=== PATIENT | male | born 1970 | race Caucasian/White ===

== ENCOUNTER 2018-02-04 09:33 | Emergency (ER) | payer OTHER ==
--- NOTE | 2018-02-04 09:59 | EDM.PDOC ---
ED HPI GENERAL MEDICAL PROBLEM - General Chief Complaint: Upper Extremity Injury/Pain Stated Complaint: PT'S TUMB ON RT HAND IS SWOLLEN Time Seen by Provider: 02/04/18 09:49 Source of Information: Reports: Patient History Limitations: Reports: No Limitations - History of Present Illness INITIAL COMMENTS - FREE TEXT/NARRATIVE: History of present illness: []Patient's had right thumb swelling for over a month. 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 He states he can roll thousand 5 times a day. He does not recall ever breaking or having increased swelling. Review of systems: As per history of present illness and below otherwise all systems reviewed and negative. Past medical history: As per history of present illness and as reviewed below otherwise noncontributory. Surgical history: As per history of present illness and as reviewed below otherwise noncontributory. Social history: No reported history of drug or alcohol abuse. Family history: As per history of present illness and as reviewed below otherwise noncontributory. Physical exam: General: Well developed, well nourished in NAD HEENT: Atraumatic, normocephalic, pupils reactive, negative for conjunctival pallor or scleral icterus, mucous membranes moist, throat clear, neck supple, nontender, trachea midline. Lungs: Clear to auscultation, breath sounds equal bilaterally, chest nontender. Heart: S1S2, regular, negative for clicks, rubs, or JVD. Abdomen: Soft, nondistended, nontender. Negative for masses or hepatosplenomegaly. Negative for costovertebral tenderness. Pelvis: Stable nontender. Genitourinary: Deferred. Rectal: Deferred. Extremities: Atraumatic, there is swelling of the right thumb compared to the left and mild tenderness over the proximal phalanx with no gross deformity , Refill is brisk sensation is intact negative for cords or calf pain. Neurovascular unremarkable. Neuro: Awake, alert, oriented. Cranial nerves II through XII unremarkable. Cerebellum unremarkable. Motor and sensory unremarkable throughout. Exam nonfocal. Diagnostics: []X-ray right thumb shows no fracture Therapeutics: []Aluminum foam U-splint Impression: []Soft tissue thumb pain secondary to repetitive heavy pipe lifting Plan: []Motrin, ice, splint for comfort follow-up with primary care as needed. Definitive disposition and diagnosis as appropriate pending reevaluation and review of above. Right 1-Thumb Pain Score (Numeric/FACES): 5 - Related Data Allergies Allergy/AdvReac Type Severity Reaction Status Date / Time No Known Allergies Allergy Verified 02/04/18 09:47 Home Meds: Home Meds Phenytoin Sodium Extended [Dilantin] 600 mg PO DAILY 02/04/18 [History] levETIRAcetam [Keppra] 750 mg PO DAILY 02/04/18 [History] Past Medical History Neurological History: Reports: Seizure Other Neuro History: dx epilepsy - Past Surgical History GI Surgical History: Reports: Hernia Repair/Other Social & Family History - Family History Family Medical History: Noncontributory - Tobacco Use Smoking Status *Q: Former Smoker Used Tobacco, but Quit: Yes Month/Year Tobacco Last Used: 2016 - Caffeine Use Caffeine Use: Reports: Coffee - Recreational Drug Use Recreational Drug Use: No Review of Systems - Review of Systems Review Of Systems: See Below (See history of present illness) ED EXAM, GENERAL - Physical Exam Exam: See Below (See history of present illness) Course - Vital Signs Last Recorded V/S: Last Vital Signs Temp 97.8 F 02/04/18 11:48 Pulse 124 H 02/04/18 11:48 Resp 18 02/04/18 11:48 BP 162/98 H 02/04/18 11:48 Pulse Ox 98 02/04/18 11:48 - Orders/Labs/Meds Orders: Active Orders 24 hr Category Date Time Status Splinting [RC] ASDIRECTED Care 02/04/18 11:27 Active Departure - Departure Time of Disposition: 11:25 Disposition: Home, Self-Care 01 Condition: Good Clinical Impression: Swelling of thumb, right - Discharge Information Instructions: Contusion, [id number] Referrals: PCP,None [Primary Care Provider] - Forms: ED Department Discharge Additional Instructions: The following information is given to patients seen in the emergency department who are being discharged to home. This information is to outline your options for follow-up care. We provide all patients seen in our emergency department with a follow-up referral. The need for follow-up, as well as the timing and circumstances, are variable depending upon the specifics of your emergency department visit. If you don't have a primary care physician on staff, we will provide you with a referral. We always advise you to contact your personal physician following an emergency department visit to inform them of the circumstance of the visit and for follow-up with them and/or the need for any referrals to a consulting specialist. The emergency department will also refer you to a specialist when appropriate. This referral assures that you have the opportunity for follow-up care with a specialist. All of these measure are taken in an effort to provide you with optimal care, which includes your follow-up. Under all circumstances we always encourage you to contact your private physician who remains a resource for coordinating your care. When calling for follow-up care, please make the office aware that this follow-up is from your recent emergency room visit. If for any reason you are refused follow-up, please contact the [facility] Emergency Department at and asked to speak to the emergency department charge nurse. Scott Braun splint for protection follow-up with primary care [facility] [address] [place] [id number] - My Orders Last 24 Hours: My Active Orders 02/04/18 11:27 Splinting [RC] ASDIRECTED - Assessment/Plan Last 24 Hours: My Active Orders 02/04/18 11:27 Splinting [RC] ASDIRECTED
--- NOTE | 2018-02-04 11:12 | CR ---
EXAMINATION: Right thumb HISTORY: Pain COMPARISON: None TECHNIQUE: 3 views FINDINGS/IMPRESSION: There is no acute osseous abnormality, dislocation, or fracture. Bone mineraliza tion and joint spaces appear normal. Mild soft tissue swelling. Mild osteophyte formation noted at th e interphalangeal joint.
== END 2018-02-04 11:40 | disposition home or self-care (01) ==
LOC: MW.ED 09:33
DX: R22.31 Localized swelling, mass and lump, right upper limb (principal); M79.644 Pain in right finger(s); Z79.899 Other long term (current) drug therapy; Z87.891 Personal history of nicotine dependence; X50.3XXA Overexertion from repetitive movements, initial encounter
CPT/HCPCS: 73140-26-F5; 73140-F5; 99283

== ENCOUNTER 2018-02-09 18:00 | Emergency (ER) | payer BC, OTHER ==
[2018-02-09] MEDS ORDERED: Ondansetron 4 MG/2 ML SDV IVPUSH ONE (18:28)
[2018-02-09] MEDS ORDERED: Sodium Chloride 0.9% 1,000 ML IV ONE ×2 (18:28→19:56)
--- NOTE | 2018-02-09 18:28 | EDM.PDOC ---
ED HPI GENERAL MEDICAL PROBLEM - General Chief Complaint: Gastrointestinal Problem Stated Complaint: THROWING UP Time Seen by Provider: 02/09/18 18:22 - History of Present Illness INITIAL COMMENTS - FREE TEXT/NARRATIVE: HISTORY AND PHYSICAL: History of present illness: Patient's 47-year-old white male history of epilepsy who presents with concern of nausea vomiting diarrhea since this a.m. he denies fever chills he did not receive influenza immunization this year he denies chest pain shortness of breath or other concern. He equivocates regarding some mild epigastric discomfort. Review of systems: As per history of present illness and below otherwise all systems reviewed and negative. Past medical history: As per history of present illness and as reviewed below otherwise noncontributory. Surgical history: As per history of present illness and as reviewed below otherwise noncontributory. Social history: No reported history of drug or alcohol abuse. Family history: As per history of present illness and as reviewed below otherwise noncontributory. Physical exam: HEENT: Atraumatic, normocephalic, pupils reactive, negative for conjunctival pallor or scleral icterus, mucous membranes dry, throat clear, neck supple, nontender, trachea midline. Lungs: Clear to auscultation, breath sounds equal bilaterally, chest nontender. Heart: S1S2, regular, negative for clicks, rubs, or JVD. Abdomen: Soft, nondistended, nontender. Negative for masses or hepatosplenomegaly. Negative for costovertebral tenderness. Pelvis: Stable nontender. Genitourinary: Deferred. Rectal: Deferred. Extremities: Atraumatic, negative for cords or calf pain. Neurovascular unremarkable. Neuro: Awake, alert, oriented. Cranial nerves II through XII unremarkable. Cerebellum unremarkable. Motor and sensory unremarkable throughout. Exam nonfocal. Diagnostics: CBC CMP and lipase troponin PT/INR EKG acute abdominal series with chest x-ray Dilantin level Keppra level influenza screen Therapeutics: Normal saline 1 L bolus Zofran 4 mg IV Impression: #1 vomiting/diarrhea with dehydration Definitive disposition and diagnosis as appropriate pending reevaluation and review of above. epigastric Pain Score (Numeric/FACES): 6 - Related Data Allergies Allergy/AdvReac Type Severity Reaction Status Date / Time No Known Allergies Allergy Verified 02/09/18 18:08 Home Meds: Home Meds Phenytoin Sodium Extended [Dilantin] 600 mg PO DAILY 02/04/18 [History] levETIRAcetam [Keppra] 750 mg PO DAILY 02/04/18 [History] Past Medical History HEENT History: Reports: None Cardiovascular History: Reports: None Respiratory History: Reports: None Gastrointestinal History: Reports: None Genitourinary History: Reports: None Musculoskeletal History: Reports: None Neurological History: Reports: Seizure Other Neuro History: dx epilepsy Psychiatric History: Reports: None Endocrine/Metabolic History: Reports: None Hematologic History: Reports: None Immunologic History: Reports: None Oncologic (Cancer) History: Reports: None Dermatologic History: Reports: None - Past Surgical History Head Surgeries/Procedures: Reports: None HEENT Surgical History: Reports: None Cardiovascular Surgical History: Reports: None Respiratory Surgical History: Reports: None GI Surgical History: Reports: Hernia Repair/Other Male Surgical History: Reports: None Neurological Surgical History: Reports: None Musculoskeletal Surgical History: Reports: None Oncologic Surgical History: Reports: None Dermatological Surgical History: Reports: None Social & Family History - Family History Family Medical History: Noncontributory - Tobacco Use Smoking Status *Q: Former Smoker Used Tobacco, but Quit: Yes Month/Year Tobacco Last Used: 1 - Caffeine Use Caffeine Use: Reports: Coffee - Recreational Drug Use Recreational Drug Use: No ED ROS GENERAL - Review of Systems Review Of Systems: ROS reveals no pertinent complaints other than HPI. ED EXAM, GENERAL - Physical Exam Exam: See Below (See dictation) Course - Vital Signs Last Recorded V/S: Last Vital Signs Temp 38.8 C H 02/09/18 20:13 Pulse 105 H 02/09/18 20:13 Resp 16 02/09/18 20:13 BP 127/74 02/09/18 20:13 Pulse Ox 94 L 02/09/18 20:13 - Orders/Labs/Meds Orders: Active Orders 24 hr Category Date Time Status EKG Documentation Completion [RC] STAT Care 02/09/18 18:28 Active Pulse Oximetry [RC] ASDIRECTED Care 02/09/18 18:28 Active Abdomen Pelvis wo Cont [CT] Stat Exams 02/09/18 19:51 Taken Abdomen Series w Chest 1V [CR] Stat Exams 02/09/18 18:28 Taken INFLUENZA A+B AG SCREEN [RM] Stat Lab 02/09/18 18:40 Ordered Labs: Laboratory Tests 02/09/18 02/09/18 02/09/18 Range/Units 18:01 18:01 18:01 WBC 9.31 (4.0-11.0) K/uL RBC 5.00 (4.50-5.90) M/uL Hgb 15.3 (13.0-17.0) g/dL Hct 43.9 (38.0-50.0) % MCV 87.8 (80.0-98.0) fL MCH 30.6 (27.0-32.0) pg MCHC 34.9 (31.0-37.0) g/dL RDW Std Deviation 45.4 (28.0-62.0) fl RDW Coeff of Davion 14 (11.0-15.0) % Plt Count 187 (150-400) K/uL MPV 8.70 (7.40-12.00) fL Neut % (Auto) 88.6 H (48.0-80.0) % Lymph % (Auto) 3.0 L (16.0-40.0) % [place] % (Auto) 6.6 (0.0-15.0) % Eos % (Auto) 1.8 (0.0-7.0) % Baso % (Auto) 0.0 (0.0-1.5) % Neut # (Auto) 8.3 H (1.4-5.7) K/uL Lymph # (Auto) 0.3 L (0.6-2.4) K/uL [place] # (Auto) 0.6 (0.0-0.8) K/uL Eos # (Auto) 0.2 (0.0-0.7) K/uL Baso # (Auto) 0.0 (0.0-0.1) K/uL Nucleated RBC % 0.0 /100WBC Nucleated RBCs # 0 K/uL INR 1.10 Sodium 140 (136-148) mmol/L Potassium 4.0 (3.5-5.1) mmol/L Chloride 105 (98-107) mmol/L Carbon Dioxide 21.7 (21.0-32.0) mmol/L BUN 21 H (7.0-18.0) mg/dL Creatinine 1.1 (0.8-1.3) mg/dL Est Cr Clr Drug Dosing 89.16 mL/min Estimated GFR (MDRD) > 60.0 ml/min Glucose 125 H (74-106) mg/dL Calcium 8.4 L (8.5-10.1) mg/dL Total Bilirubin 0.4 (0.2-1.0) mg/dL AST 22 (15-37) IU/L ALT 26 (14-63) IU/L Alkaline Phosphatase 83 (46-116) U/L Troponin I < 0.050 (0.000-0.056) ng/mL Total Protein 7.5 (6.4-8.2) g/dL Albumin 4.0 (3.4-5.0) g/dL Globulin 3.5 (2.0-3.5) g/dL Albumin/Globulin Ratio 1.1 L (1.3-2.8) Lipase 139 (73-393) U/L Meds: Medications Discontinued Medications Generic Name Dose Route Start Last Admin Trade Name Freq PRN Reason Stop Dose Admin Acetaminophen 1,000 mg 02/09/18 20:36 02/09/18 20:41 Tylenol Extra Strength PO 02/09/18 20:37 1,000 mg ONETIME ONE Administration Sodium Chloride 1,000 mls @ 999 mls/hr 02/09/18 18:28 02/09/18 18:37 Normal Saline IV 02/09/18 19:28 999 mls/hr STAT ONE Administration Sodium Chloride 1,000 mls @ 999 mls/hr 02/09/18 19:56 02/09/18 19:57 Normal Saline IV 02/09/18 20:56 999 mls/hr .Bolus ONE Administration Ketorolac Tromethamine 30 mg 02/09/18 19:51 02/09/18 19:56 Toradol IVPUSH 02/09/18 19:52 30 mg ONETIME ONE Administration Ketorolac Tromethamine 30 mg 02/09/18 21:15 Toradol IVPUSH 02/09/18 21:16 ONETIME ONE Ondansetron HCl 4 mg 02/09/18 18:28 02/09/18 18:37 Zofran IVPUSH 02/09/18 18:29 4 mg ONETIME ONE Administration Departure - Departure Time of Disposition: 21:16 Disposition: Home, Self-Care 01 Condition: Good Clinical Impression: Gastroenteritis, Dehydration - Discharge Information Referrals: PCP,None [Primary Care Provider] - Forms: ED Department Discharge Additional Instructions: The following information is given to patients seen in the emergency department who are being discharged to home. This information is to outline your options for follow-up care. We provide all patients seen in our emergency department with a follow-up referral. The need for follow-up, as well as the timing and circumstances, are variable depending upon the specifics of your emergency department visit. If you don't have a primary care physician on staff, we will provide you with a referral. We always advise you to contact your personal physician following an emergency department visit to inform them of the circumstance of the visit and for follow-up with them and/or the need for any referrals to a consulting specialist. The emergency department will also refer you to a specialist when appropriate. This referral assures that you have the opportunity for followup care with a specialist. All of these measure are taken in an effort to provide you with optimal care, which includes your followup. Under all circumstances we always encourage you to contact your private physician who remains a resource for coordinating your care. When calling for followup care, please make the office aware that this follow-up is from your recent emergency room visit. If for any reason you are refused follow-up, please contact the [facility] emergency department at and asked to speak to the emergency department charge nurse. Zofran as prescribed clear liquids 24 hours avoid dairy 72 hours follow-up private medical doctor return as needed as discussed - My Orders Last 24 Hours: My Active Orders 02/09/18 18:28 EKG Documentation Completion [RC] STAT Pulse Oximetry [RC] ASDIRECTED Abdomen Series w Chest 1V [CR] Stat 02/09/18 18:40 INFLUENZA A+B AG SCREEN [RM] Stat 02/09/18 19:51 Abdomen Pelvis wo Cont [CT] Stat - Assessment/Plan Last 24 Hours: My Active Orders 02/09/18 18:28 EKG Documentation Completion [RC] STAT Pulse Oximetry [RC] ASDIRECTED Abdomen Series w Chest 1V [CR] Stat 02/09/18 18:40 INFLUENZA A+B AG SCREEN [RM] Stat 02/09/18 19:51 Abdomen Pelvis wo Cont [CT] Stat
[2018-02-09 19:04] LABS: CHLORIDE,CL 105 mmol/L (98-107); SODIUM,NA 140 mmol/L (136-148)
[2018-02-09] MEDS ORDERED: Ketorolac 30 MG/ML SDV IVPUSH ONE ×2 (19:51→21:15)
[2018-02-09] MEDS ORDERED: Acetaminophen 500 MG Tab PO ONE (20:36)
--- NOTE | 2018-02-10 10:47 | CR ---
EXAM DATE: 02/09/18 PATIENT'S AGE: 47 Patient: ZAIDA PAEZ Facility: [place], [place] Site . Site : 1970 Study: XRay Abdomen [id number]/[id number] 7:23:28 PM Ordering Physician: Andrew Baires Final Report: INDICATION: Nausea and vomiting TECHNIQUE: Chest 1 view. COMPARISON: None FINDINGS: Cardiovascular and mediastinum: Heart size and vasculature are normal in caliber and appearance. Mediastinum is within normal limits. Lungs and pleural space: Lungs are clear. No sign of infiltrate or mass. No sign of pleural effusion. No pneumothorax. Bones and soft tissues: No significant findings. Abdomen: 6 millimeter calcified density projects over the inferior pole left kidney the supine view and over the superior pole on the upright view. IMPRESSION: Unremarkable chest. 6 millimeter radiopaque/ calcified density projects over the inferior pole left kidney on the supine view and superior pole on the upright view. Dictated by Rex Wilkerson MD @ 02/09/2018 7:30:24 PM Dictated by: Rex Wilkerson MD @ 02/09/2018 19:30:30 (Electronic Signature) Report Signed by Proxy. [facility] HOSPITALJarod
--- NOTE | 2018-02-10 10:51 | CT ---
EXAM DATE: 02/09/18 PATIENT'S AGE: 47 Patient: ZAIDA PAEZ Facility: [place], [place] Site . Site : 1970 Study: CT Abdomen/Pelvis W/O [id number]/10/2018 8:28:09 PM Ordering Physician: Andrew Baires Final Report: INDICATION: Generalized abdominal pain, possible calculi on prior abdominal x-ray. TECHNIQUE: CT abdomen and pelvis without contrast. COMPARISON: None FINDINGS: Lower chest: Unremarkable. Liver: Subcentimeter low-attenuation lesion left lobe of the liver. Findings most likely represent small cysts or hemangiomas. Spleen: Unremarkable. Pancreas: Unremarkable. Gallbladder and bile ducts: Unremarkable. Kidneys: Unremarkable. No kidney or ureteral stones and no hydronephrosis. Adrenal glands: Unremarkable. GI tract: Unremarkable. Appendix is normal. Vascular structures: Unremarkable. Lymph nodes: Unremarkable. Miscellaneous: Unremarkable. No free air or significant free fluid. Pelvic Organs: Unremarkable. Bones: Unremarkable for age. IMPRESSION: Unremarkable noncontrast CT of the abdomen and pelvis. No urinary tract stones or hydronephrosis. Dictated by Rex Wilkerson MD @ 02/09/2018 8:45:11 PM Dictated by: Rex Wilkerson MD @ 02/09/2018 20:45:19 (Electronic Signature) Report Signed by Proxy. [facility]
== END 2018-02-09 21:34 | disposition home or self-care (01) ==
LOC: MW.ED 18:00
DX: E86.0 Dehydration (principal); K52.9 Noninfective gastroenteritis and colitis, unspecified; Z79.899 Other long term (current) drug therapy; Z87.891 Personal history of nicotine dependence
CPT/HCPCS: 36415; 74022; 74176; 80053; 83690; 84484; 85025; 85610; 87804; 96361; 96374; 96375; 99285; A9270; J1885; J2405; J7040; 93005; 99283